=== PATIENT | female | born 1950 | race Native Hawaiian/Other Pacific Islander ===

== ENCOUNTER 2021-02-08 14:41 | Outpatient (CLI) | payer OTHER ==
[2021-02-08 15:10] LABS: POTASSIUM 3.7 mmol/L (3.6-5.2)
== END 2021-02-08 21:31 | disposition home or self-care (01) ==
LOC: CT 14:41
PROVIDERS: ATTEND Nurse Practitioner Family
DX: R06.02 Shortness of breath (principal)
CPT/HCPCS: 36415; 80053; Q9963